=== PATIENT | male | born 1940 | race Caucasian/White ===

== ENCOUNTER → 2018-08-15 | Outpatient (CLI) | payer MEDICARE ==
[~2018-08-15] MED LIST: AEC81 PO; ALLO100T PO; CART1TAB4 PO; CARV25TA PO; CHOL500051 PO; DIGO125T87 PO; ENAL5TAB PO; FISH1CAP63 PO; FOLI0.8T PO; FURO20TA4 PO; INSU100I21 SQ; INSU100I3 SQ; ISOS60TA4 PO; LOVA20TA3 PO; MELA3TAB PO; MVIT PO; RANO500T2 PO; RIVA20TA PO; THIA250T6 PO
== END | disposition home or self-care (01) ==
LOC: RAH 15:04
PROVIDERS: ATTEND Internal Medicine Critical Care Medicine
DX: J20.9 Acute bronchitis, unspecified (principal); M47.895 Other spondylosis, thoracolumbar region
CPT/HCPCS: 71046

== ENCOUNTER → 2018-09-18 | Outpatient (CLI) | payer MEDICARE | END | disposition home or self-care (01) | LOC: RAH 13:02 | PROVIDERS: ATTEND Internal Medicine Critical Care Medicine | DX: I12.9 Hypertensive chronic kidney disease with stage 1 through stage 4 chronic kidney disease, or unspecified chronic kidney disease (principal); E11.22 Type 2 diabetes mellitus with diabetic chronic kidney disease; N18.9 Chronic kidney disease, unspecified | CPT/HCPCS: 76770 ==

== ENCOUNTER → 2018-12-24 | Outpatient (CLI) | payer MEDICARE | END | disposition home or self-care (01) | LOC: RAH 15:32 | PROVIDERS: ATTEND Internal Medicine Critical Care Medicine | DX: M25.562 Pain in left knee (principal) | CPT/HCPCS: 73562 ==

== ENCOUNTER 2020-01-12 13:31 | Observation (INO) | payer MEDICARE ==
[~2020-01-12] VITALS: Ht 185.4 cm; Wt 99.2 kg
[~2020-01-12 13:31] MED LIST changes: +DIGO125T71 PO; -DIGO125T87 PO; -MELA3TAB PO; +MELA3TAB41 PO; -THIA250T6 PO; +THIA250T9 PO
[2020-01-12 14:04] LABS: BASOPHILS % (AUTO) 0.5 % (0.0-5.0); EOSINOPHILS % (AUTO) 2.2 % (0.0-8.0); HEMATOCRIT 32.9 % (42-54); LYMPHOCYTES % (AUTO) 8.5 % (21.0-51.0); MEAN CORPUSCULAR HEMOGLOBIN 29.6 pg (27.0-33.0); MEAN CORPUSCULAR HGB CONC 32.2 g/dL (32.0-36.0); MEAN CORPUSCULAR VOLUME 91.9 fL (79-99); MONOCYTES % (AUTO) 7.9 % (3.0-13.0); NEUTROPHILS % (AUTO) 79.8 % (40.0-77.0); PLATELET COUNT (AUTO) 162 K/uL (130-400); RED BLOOD CELL COUNT(AUTO) 3.58 MIL/uL (4.50-6.20); RED CELL DISTRIBUTION WIDTH 19.4 % (11.0-15.5); WHITE BLOOD COUNT (AUTO) 6.5 K/uL (4.8-10.8)
[2020-01-12 14:15] LABS: CREATININE 1.8 mg/dL (0.5-1.5); POTASSIUM 3.5 mmol/L (3.5-5.1)
[2020-01-12 14:20] LABS: ALBUMIN 3.4 g/dL (3.5-5.0); BILIRUBIN,TOTAL 0.3 mg/dL (0.2-1.0); TOTAL PROTEIN, SERUM 7.5 g/dL (6.0-8.3)
[2020-01-12] MEDS ORDERED: DEXTROSE 50%-WATER 50 ML DISP.SYRIN IV ONE ×2 (15:30→15:32)
[2020-01-12] MEDS ORDERED: DEXTROSE 5 % AND 0.9 % NACL 0 ML IV ONE (15:39)
[2020-01-12] MEDS ORDERED: DEXTROSE 5 %-0.45 % NACL 1,000 ML IV ONE (15:40)
[2020-01-12] MEDS ORDERED: DEXTROSE 50%-WATER 50 ML DISP.SYRIN IV PRN (16:30)
[2020-01-12] MEDS: INSULIN HUMULIN R 100 UNIT/ML 3ML SQ SCH ×2 (16:30→22:30)
[2020-01-12] MEDS ORDERED: GLUCAGON 1MG KIT 1 MG ML IM PRN (16:30)
[2020-01-12 17:45] VITALS: BP 152/73
[2020-01-12 18:01] LABS: HEMOGLOBIN A1C 7.1 % (4.0-6.0)
[2020-01-12] MEDS ORDERED: VITAMIN D3 PO (18:28)
[2020-01-12] MEDS ORDERED: MELA5TAB14 PO (18:31)
[2020-01-12] MEDS ORDERED: OMEGA Q PLUS PO (18:33)
[2020-01-12] MEDS ORDERED: FOLATE PO (18:35)
[2020-01-12] MEDS ORDERED: FURO20TA4 PO (18:49)
[2020-01-12] MEDS ORDERED: CARV12.511 PO (18:50)
[2020-01-12 19:20] VITALS: BP 137/71
[2020-01-12 20:43] LABS: TROPONIN I 0.12 ng/mL (0.00-0.06)
[2020-01-12] MEDS ORDERED: HYDROXYZINE HCL 25 MG TABLET PO ONE (21:00)
[2020-01-12] MEDS: DEXTROSE 5 %-0.45 % NACL 1,000 ML IV SCH (22:16)
[2020-01-13] VITALS (7 sets, daily range): BP systolic 111–137; BP diastolic 56–78
[2020-01-13 00:01] LABS: TROPONIN I 0.13 ng/mL (0.00-0.06)
[2020-01-13] MEDS: DEXTROSE 5 %-0.45 % NACL 1,000 ML IV SCH (02:35)
[2020-01-13] MEDS: INSULIN HUMULIN R 100 UNIT/ML 3ML SQ SCH (04:30)
[2020-01-13 06:09] LABS: BASOPHILS % (AUTO) 0.4 % (0.0-5.0); EOSINOPHILS % (AUTO) 1.6 % (0.0-8.0); HEMATOCRIT 31.2 % (42-54); LYMPHOCYTES % (AUTO) 10.6 % (21.0-51.0); MEAN CORPUSCULAR HEMOGLOBIN 29.7 pg (27.0-33.0); MEAN CORPUSCULAR HGB CONC 32.7 g/dL (32.0-36.0); MEAN CORPUSCULAR VOLUME 90.7 fL (79-99); MONOCYTES % (AUTO) 6.4 % (3.0-13.0); NEUTROPHILS % (AUTO) 80.5 % (40.0-77.0); PLATELET COUNT (AUTO) 150 K/uL (130-400); RED BLOOD CELL COUNT(AUTO) 3.44 MIL/uL (4.50-6.20); RED CELL DISTRIBUTION WIDTH 19.6 % (11.0-15.5)
[2020-01-13 06:31] LABS: CREATININE 1.6 mg/dL (0.5-1.5); POTASSIUM 4.2 mmol/L (3.5-5.1); TROPONIN I 0.12 ng/mL (0.00-0.06)
[2020-01-13] MEDS ORDERED: FAMOTIDINE/PF 20 MG/2 ML VIAL IV SCH (09:00)
[2020-01-13] MEDS ORDERED: ENOXAPARIN SODIUM 30 MG/0.3 ML SQ SCH (09:00)
[2020-01-13] MEDS ORDERED: DEXTROSE 50%-WATER 50 ML DISP.SYRIN IV PRN (12:45)
[2020-01-13] MEDS ORDERED: GLUCAGON 1MG KIT 1 MG ML IM PRN (12:45)
[2020-01-13] MEDS: INSULIN LISPRO 100 UNIT/ML 3ML SQ SCH ×4 (13:24→21:09)
[2020-01-13 14:22] LABS: TROPONIN I 0.12 ng/mL (0.00-0.06)
--- NOTE | 2020-01-13 15:10 | NUR ---
NUTRITION EDUCATION ANDREW provided Diabetes Nutrition education with Pt. ANDREW provided education material to Pt. ANDREW discussed diet modification with Pt. Pt with no questions at time of visit. Pt did relay has had DM classes in the past. Pt verbalized understanding. Pt hard of hearing in right ear. Addendum: 01/13/20 at [address] Amended: Links added.
[2020-01-13] MEDS ORDERED: RIVAROXABAN 20 MG TABLET PO SCH (17:00)
--- NOTE | 2020-01-13 17:12 | NUR ---
CM NOTE/IA MEET WITH PATIENT IN ROOM. PER PATIENT LIVES ALONE, IS INDEPENDENT WITH ADLS, HAS ROLLATOR WALKER AND STD WALK, NO PROVIDER OR HOME HEALTH AND FEELS SAFE TO RETURN HOME. PER PATIENT, SPOUSE CURRENTLY IN SKILLED NURSING, UNABLE TO RECALL NAME. FELIX, DAUGHTER, SUSHMA VASQUEZ [phone], AWARE OF POSSIBLE DC 01/14/[address] SARABIA. DCP IS HOME. Addendum: 01/13/20 at 1720 by DANE VILLALOBOS RN CM Amended: Links added.
[2020-01-13] MEDS ORDERED: HYDROXYZINE HCL 25 MG TABLET PO PRN (20:15)
[2020-01-13] MEDS ORDERED: INSULIN GLARGINE 100 UNITS/ML 10 ML VIAL SQ SCH (21:00)
[2020-01-13] MEDS: RANOLAZINE 500 MG TAB.SR.12H PO SCH (21:04)
[2020-01-13] MEDS: CARVEDILOL 12.5 MG TABLET PO SCH (21:04)
[2020-01-13] MEDS: ENALAPRIL MALEATE 5 MG TAB PO SCH (21:04)
[2020-01-13 22:04] LABS: TROPONIN I 0.12 ng/mL (0.00-0.06)
[2020-01-14 03:38] VITALS: BP 125/64
[2020-01-14 05:49] LABS: TROPONIN I 0.13 ng/mL (0.00-0.06)
[2020-01-14] MEDS: INSULIN LISPRO 100 UNIT/ML 3ML SQ SCH ×2 (06:36→08:37)
[2020-01-14 07:45] VITALS: BP 111/61
--- NOTE | 2020-01-14 08:25 | NUR ---
STATUS PT @ NURSE'S STATION STATING, HE'S READY TO GO HOME ALREADY. WAS TOLD BY YESTERDAY, HE WOULD BE GOING HOME TODAY BY 1030 AM. INFORMED PT MD PENDING TO ROUND, GIVE DC ORDER, & REVIEW DC MEDS.
--- NOTE | 2020-01-14 08:30 | NUR ---
AM ASSESSMENT PT SITTING IN BED, "WAITING FOR DR TO GET HERE." A/O X 3. [place]. NO SOB. NO DISTRESS NOTED. DENIES CHEST PAIN OR DISCOMFORT. DENIES PALPITATIONS. TELE: V PACED. DENIES N/V AND/OR DIARRHEA. UP AD ADELA. INSTRUCTED TO CALL FOR ASSISTANCE. CALL [facility] W/IN REACH.
[2020-01-14 08:38] VITALS: BP 111/61
[2020-01-14] MEDS: CARVEDILOL 12.5 MG TABLET PO SCH (08:38)
[2020-01-14] MEDS: ENALAPRIL MALEATE 5 MG TAB PO SCH (08:38)
[2020-01-14] MEDS: RANOLAZINE 500 MG TAB.SR.12H PO SCH (08:38)
[2020-01-14] MEDS ORDERED: OMEGA Q PO SCH (09:00)
[2020-01-14] MEDS ORDERED: FAMOTIDINE 20MG TAB 20 MG TAB PO SCH (09:00)
[2020-01-14] MEDS ORDERED: ASPIRIN 81 MG EC TAB PO SCH (09:00)
[2020-01-14] MEDS ORDERED: ISOSORBIDE MONO 60 MG TAB.SR PO SCH (09:00)
[2020-01-14] MEDS ORDERED: FOLIC ACID 1 MG TABLET PO SCH (09:00)
[2020-01-14] MEDS ORDERED: **HM** VIT D3 25MCG PO SCH (09:00)
[2020-01-14] MEDS ORDERED: FUROSEMIDE 40 MG TABLET PO SCH (09:00)
--- NOTE | 2020-01-14 09:20 | NUR ---
MD NOTIFICATION MD & CN NOTIFIED PT WANTING TO LEAVE AMA.
--- NOTE | 2020-01-14 09:20 | NUR ---
VISIT DR SARABIA IN TO SEE PT. DC ORDER GIVEN. DC MEDICATIONS REVIEWED. Addendum: 01/14/20 at 1044 by MP BYRNE RN RN ERROR ENTRY. CORRECTION, VISIT TIME [id number].
--- NOTE | 2020-01-14 09:32 | NUR ---
STATUS SPOKE W/PT'S DAUGHTER, SUSHMA, FATHER WANTING TO LEAVE AMA & NOT WILLING TO WAIT FOR DR SARABIA TO ROUND AND GIVE DC ORDER. PER PT'S DAUGHTER, YESTERDAY ALSO TOLD PT TO BE DISCHARGED TODAY BY 10 AM.
--- NOTE | 2020-01-14 09:40 | NUR ---
DISCHARGE IV DC'D @ THIS TIME. TELE D[place]ON REMOVED EARLIER.
[2020-01-14] MEDS ORDERED: PEN1DIS.48 MC (10:11)
--- NOTE | 2020-01-14 10:20 | NUR ---
DISCHARGE VERBAL & WRITTEN DISCHARGE MEDICATION REVIEWED & GIVEN TO PT. QUESTIONS ENCOURAGED & CLARIFIED. DC'D HOME MEDICATIONS REVIEWED. PT TO F/U W/PCP. PT GATHERED PERSONAL BELONGINGS. PT'S DAUGHTER SENT "RUT" TO PHYSICIAN/OPHTHALMOLOGIST PT FROM HOSPITAL. SECURITY TO NOTIFY STAFF WHEN "RUT" ARRIVES TO TAKE PT HOME.
--- NOTE | 2020-01-14 11:30 | NUR ---
DISCHARGE "RUT" HERE TO TAKE PT HOME. PT TAKEN TO PRIVATE VEHICLE VIA WC BY Toney BANUELOS. NO DISTRESS NOTED.
[2020-01-14] MEDS ORDERED: **HM** MELATONIN 5MG PO SCH (21:00)
== END 2020-01-14 11:30 | disposition home or self-care (01) ==
LOC: EDH 13:31 → EDHIP 16:25 → INTOOBSV 16:25 → 4CH 17:26
PROVIDERS: ADMIT Internal Medicine; ATTEND Internal Medicine
DX: E11.649 Type 2 diabetes mellitus with hypoglycemia without coma (principal); E11.65 Type 2 diabetes mellitus with hyperglycemia; I11.0 Hypertensive heart disease with heart failure; I50.9 Heart failure, unspecified; Z85.038 Personal history of other malignant neoplasm of large intestine; Z87.891 Personal history of nicotine dependence; Z85.828 Personal history of other malignant neoplasm of skin; Z86.010 Personal history of colon polyps; Z90.49 Acquired absence of other specified parts of digestive tract; Z91.11 Patient's noncompliance with dietary regimen; Z79.4 Long term (current) use of insulin; Z79.899 Other long term (current) drug therapy
CPT/HCPCS: 36415 ×3; 71045; 80048; 80053; 82550 ×7; 82948 ×12; 83036; 83874 ×6; 84484 ×7; 85025 ×2; 93005; 96361 ×2; 96372; 96374; 99291; G0378 ×43; J1650; J3490; J7042 ×2; J7070 ×2